=== PATIENT | male | born 1990 | race Hispanic/Latino ===

== ENCOUNTER 2017-08-23 17:22 | Emergency (ER) | payer MEDICAID, OTHER ==
[2017-08-23 18:42] LABS: #Eosinphils 0.1 thou/uL (0.0-0.7); #Lymphocytes 0.8 thou/uL (1.20-3.40); #Monocytes 0.5 thou/uL (0.11-0.59); %Basophils 0.9 % (0.0-1.0); %Lymphocytes 15.3 % (21.0-51.0); %Monocytes 8.9 % (0.0-10.0); Hematocrit 47.2 % (42.0-52.0); Mean Platelet Volume 7.7 fL (7.4-10.4); Red Blood Cell (RBC) Count 4.82 mill/uL (4.70-6.10); White Blood Cell (WBC) Count 5.4 thou/uL (4.8-10.8)
[2017-08-23 19:03] LABS: ALT (SGPT) 14 U/L (8-55); AST (SGOT) 15 U/L (5-34); Alkaline Phosphatase 73 U/L (40-150); Anion Gap 13 mmol/L (10-20); BUN (Urea Nitrogen) 11 mg/dL (8.9-20.6); Bilirubin, Total 0.6 mg/dL (0.2-1.2); Calc. Creatinine Clearance 0 mL/min (70-130); Carbon Dioxide 24 mmol/L (22-29); Chloride 104 mmol/L (98-107); Estimated GFR-MDRD Greater than 90; Globulin 3.1 g/dL (2.4-3.5); Protein, Total 7.1 g/dL (6.0-8.3)
[2017-08-23] MEDS ORDERED: Dexamethasone 4 MG TAB ONE (19:06)
[2017-08-23 19:16] LABS: Bilirubin Negative (Negative); Blood, Urine Negative (Negative); Glucose, Urine (Dipstick) Negative (Negative); Ketone, Urine Negative (Negative); Nitrite Negative (Negative); Protein, Urine (Dipstick) Negative (Neg-Trace)
== END 2017-08-23 20:07 | disposition home or self-care (01) ==
LOC: ERS 17:22
DX: J02.9 Acute pharyngitis, unspecified (principal); F41.9 Anxiety disorder, unspecified; F32.9 Major depressive disorder, single episode, unspecified
CPT/HCPCS: 80053; 81003; 85025; 87081; 87430; 96360; J8540

== ENCOUNTER 2017-09-30 15:50 | Emergency (ER) | payer OTHER ==
[2017-09-30 18:29] LABS: Medtox Reader # READER 4; THC/Cannabinoid Screen Detected (NotDetected)
[2017-09-30 18:30] LABS: Amphetamine Detected (NotDetected); Barbiturates Screen Not Detected (NotDetected); Benzodiazepine Screen Detected (NotDetected); Cocaine Metabolite Screen Not Detected (NotDetected); Medtox Control Line Valid? VALID (VALID); Methadone Not Detected (NotDetected); Methamphetamine Not Detected (NotDetected); Opiate Screen Not Detected (NotDetected); Oxycodone Screen Not Detected (NotDetected); Phencyclidine (PCP) Not Detected (NotDetected); Tricyclic Screen Not Detected (NotDetected)
[2017-10-01 21:31] LABS: Chlamydia by PCR Not Detected (NotDetected); GC by PCR Not Detected (NotDetected)
== END 2017-09-30 19:34 | disposition home or self-care (01) ==
LOC: ERS 15:50
DX: T76.21XA Adult sexual abuse, suspected, initial encounter (principal)
CPT/HCPCS: 80306; 87491; 87591; 99285

== ENCOUNTER 2018-04-30 18:54 | Emergency (ER) | payer OTHER | END 2018-04-30 20:04 | disposition left against medical advice (07) | LOC: ERS 18:54 | DX: Z53.21 Procedure and treatment not carried out due to patient leaving prior to being seen by health care provider (principal) ==

== ENCOUNTER 2018-07-05 11:40 | Emergency (ER) | payer OTHER ==
[2018-07-05] MEDS ORDERED: Ketorolac Tromethamine 60 MG/2 ML VIAL ONE (12:01)
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
[2018-07-05] MEDS ORDERED: HYDROcodone/Acetaminophen 10/325 mg Tablet ONE (12:15)
== END 2018-07-05 13:52 | disposition home or self-care (01) ==
LOC: ERS 11:40
DX: S92.342A Displaced fracture of fourth metatarsal bone, left foot, initial encounter for closed fracture (principal); F41.9 Anxiety disorder, unspecified; F32.9 Major depressive disorder, single episode, unspecified; X50.1XXA Overexertion from prolonged static or awkward postures, initial encounter
CPT/HCPCS: 96372; J1885

== ENCOUNTER 2018-07-15 17:20 | Emergency (ER) | payer OTHER | END 2018-07-15 19:20 | disposition home or self-care (01) | LOC: ERS 17:20 | DX: M25.572 Pain in left ankle and joints of left foot (principal); F41.9 Anxiety disorder, unspecified; F32.9 Major depressive disorder, single episode, unspecified | CPT/HCPCS: 99283 ==

== ENCOUNTER 2019-01-25 10:25 | Emergency (ER) | payer OTHER ==
[2019-01-25] MEDS ORDERED: Ketorolac Tromethamine 60 MG/2 ML VIAL ONE (10:32)
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
== END 2019-01-25 11:35 | disposition home or self-care (01) ==
LOC: ERS 10:25
DX: S93.401A Sprain of unspecified ligament of right ankle, initial encounter (principal); F32.9 Major depressive disorder, single episode, unspecified; F41.9 Anxiety disorder, unspecified; W18.42XA Slipping, tripping and stumbling without falling due to stepping into hole or opening, initial encounter
CPT/HCPCS: 96372; J1885

== ENCOUNTER 2019-02-17 18:37 | Emergency (ER) | payer OTHER | END 2019-02-17 19:03 | disposition home or self-care (01) | LOC: ERS 18:37 | DX: J30.9 Allergic rhinitis, unspecified (principal); F32.9 Major depressive disorder, single episode, unspecified; F41.9 Anxiety disorder, unspecified | CPT/HCPCS: 99283 ==

== ENCOUNTER 2019-08-08 22:58 | Emergency (ER) | payer OTHER, SELFPAY ==
[2019-08-08] MEDS ORDERED: fentaNYL Citrate/PF 2,000 MCG in Sodium Chloride 0.9% 60 ML IV SCH (23:13)
[2019-08-08 23:20] LABS: #Basophils 0.1 thou/uL (0.0-0.2); #Eosinphils 0.1 thou/uL (0.0-0.7); #Lymphocytes 1.9 thou/uL (1.20-3.40); #Monocytes 0.8 thou/uL (0.11-0.59); #Neutrophils 5.7 thou/uL (1.40-6.50); %Basophils 0.8 % (0.0-1.0); %Monocytes 9.2 % (0.0-10.0); Hemoglobin 16.1 g/dL (14.0-18.0); Mean Corpuscular HGB CONC 35.2 g/dL (32.0-36.0); Mean Corpuscular Hemoglobin 33.4 pg (27.0-31.0); Mean Platelet Volume 7.7 fL (7.4-10.4); Platelet Count 258 thou/uL (130-400); Red Blood Cell (RBC) Count 4.83 mill/uL (4.70-6.10); White Blood Cell (WBC) Count 8.6 thou/uL (4.8-10.8)
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
[2019-08-08 23:40] LABS: Bacteria/HPF None Seen HPF (None Seen); Bilirubin Negative (Negative); Blood, Urine Negative (Negative); Clarity Clear (Clear); Glucose, Urine (Dipstick) Normal (Negative); Leukocyte Negative Leu/uL (Negative); Mucous/LPF 1+ LPF (<2+); Nitrite Negative (Negative); Protein, Urine (Dipstick) 70 mg/dL (Neg-Trace); RBC/HPF 0-3 HPF (0-3); Squamous Epithelial 0-3 HPF (0-3); WBC/HPF 0-3 HPF (0-3)
[2019-08-08 23:45] LABS: Cocaine Metabolite Screen Not Detected (NotDetected); Medtox Reader # READER 4; Phencyclidine (PCP) Not Detected (NotDetected); Sperm/HPF Rare HPF (None Seen); THC/Cannabinoid Screen Detected (NotDetected)
[2019-08-08 23:45] LABS: Actual Bicarbonate (HCO3a) 19.4 mEq/L (22-28); Analyzer IN Cardio ER; Base Excess (BEa) -2.8 mEq/L (-2.0 to +3.0); CO2 Tension 27.5 mmHg (35.0-45.0); Calcium, Ionized 1.09 mmol/L (1.12-1.30); Carboxyhemoglobin (COHb) 0.7 gm% (0.0-3.0); Hemoglobin (Hb) 14.3 g/dL (14.0-18.0); O2 Tension (PaO2) 195.5 mmHg (80.0-100.0); Potassium - ABG Lab 2.53 mmol/L (3.70-5.30); pH, Arterial 7.47 (7.35-7.45)
[2019-08-08 23:46] LABS: Amphetamine Detected (NotDetected); Barbiturates Screen Not Detected (NotDetected); Benzodiazepine Screen Detected (NotDetected); Medtox Control Line Valid? VALID (VALID); Methadone Not Detected (NotDetected); Methamphetamine Detected (NotDetected); Opiate Screen Not Detected (NotDetected); Oxycodone Screen Not Detected (NotDetected); Tricyclic Screen Not Detected (NotDetected)
[2019-08-08] MEDS ORDERED: Ketamine 50 MG/ML (10ML VIAL) ONE (23:49)
[2019-08-08] MEDS ORDERED: Rocuronium Bromide 10 MG/ML (10ML VIAL) ONE (23:49)
[2019-08-08 23:52] LABS: Acetaminophen Less than 6.0 mcg/mL (10.0-30.0); Alcohol Less than 10 mg/dL (Less than 10); Salicylate Less than 8.0 mg/dL (15.0-30.0)
[2019-08-08 23:54] LABS: ALT (SGPT) 22 U/L (8-55); AST (SGOT) 22 U/L (5-34); Alkaline Phosphatase 85 U/L (40-110); Anion Gap 22 mmol/L (10-20); BUN (Urea Nitrogen) 10 mg/dL (8.9-20.6); Calc. Creatinine Clearance 0 mL/min (70-130); Calcium 9.7 mg/dL (7.8-10.44); Carbon Dioxide 22 mmol/L (22-29); Chloride 100 mmol/L (98-107); Estimated GFR-MDRD 83; Globulin 2.8 g/dL (2.4-3.5); Glucose 85 mg/dL (70-105); Potassium 3.1 mmol/L (3.5-5.1); Protein, Total 7.8 g/dL (6.0-8.3); Sodium 141 mmol/L (136-145)
[2019-08-09] MEDS ORDERED: Propofol 1,000 MG/100 ML VIAL IV ONE (00:32)
[2019-08-18 03:03] LABS: ALV-art Gradient 197.925 (0-20); Puncture Site RBA
== END 2019-08-09 01:00 | disposition short-term general hospital (02) ==
LOC: ERS 22:58
DX: T28.0XXA Burn of mouth and pharynx, initial encounter (principal); F41.9 Anxiety disorder, unspecified; F32.9 Major depressive disorder, single episode, unspecified; X08.8XXA Exposure to other specified smoke, fire and flames, initial encounter
CPT/HCPCS: 31500; 36415; 51702; 71045; 80053; 80306; 80307; 81003; 81015; 82805; 83605; 85025; 87086; 94002; 96360; 96365; 96375; G0390; J2704; J3010; J3490

== ENCOUNTER 2019-11-14 04:32 | Emergency (ER) | payer SELFPAY ==
[2019-11-14] MEDS ORDERED: hydrOXYzine 25 MG TAB ONE (05:16)
[2019-11-14] MEDS ORDERED: Cyclobenzaprine 10 MG TAB ONE (06:35)
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
== END 2019-11-14 06:44 | disposition home or self-care (01) ==
LOC: ERS 04:32
DX: S09.90XA Unspecified injury of head, initial encounter (principal); S29.012A Strain of muscle and tendon of back wall of thorax, initial encounter; F32.9 Major depressive disorder, single episode, unspecified; F41.9 Anxiety disorder, unspecified; W19.XXXA Unspecified fall, initial encounter
CPT/HCPCS: 70450; 72072; 72125; L0120

== ENCOUNTER 2021-04-24 00:45 | Emergency (ER) | payer SELFPAY ==
[2021-04-24 02:42] LABS: #Eosinphils 0.5 thou/uL (0.0-0.7); #Lymphocytes 2.5 thou/uL (1.20-3.40); #Monocytes 0.6 thou/uL (0.11-0.59); #Neutrophils 4.2 thou/uL (1.40-6.50); %Basophils 0.4 % (0.0-1.0); %Eosinophils 6.2 % (0.0-10.0); %Lymphocytes 32.1 % (21.0-51.0); %Monocytes 7.6 % (0.0-10.0); %Neutrophils 53.8 % (42.0-75.0); Hemoglobin 15.9 g/dL (14.0-18.0); Mean Corpuscular HGB CONC 34.2 g/dL (32.0-36.0); Mean Corpuscular Hemoglobin 33.8 pg (27.0-31.0); Mean Corpuscular Volume 98.9 fL (78.0-98.0); Mean Platelet Volume 7.4 fL (7.4-10.4); Platelet Count 247 thou/uL (130-400); RBC Distribution Width 12.6 % (11.5-14.5); Red Blood Cell (RBC) Count 4.69 mill/uL (4.70-6.10); White Blood Cell (WBC) Count 7.7 thou/uL (4.8-10.8)
[2021-04-24 03:02] LABS: Acetaminophen Less than 6.0 mcg/mL (10.0-30.0); Alcohol 118 mg/dL (Less than 10); Salicylate Less than 8.0 mg/dL (15.0-30.0)
[2021-04-24 03:03] LABS: ALT (SGPT) 21 U/L (8-55); AST (SGOT) 20 U/L (5-34); Albumin 4.3 g/dL (3.5-5.0); Alkaline Phosphatase 86 U/L (40-110); Anion Gap 15 mmol/L (10-20); BUN (Urea Nitrogen) 12 mg/dL (8.9-20.6); Bilirubin, Total 0.3 mg/dL (0.2-1.2); Calc. Creatinine Clearance 0 mL/min (70-130); Calcium 8.6 mg/dL (7.8-10.44); Carbon Dioxide 25 mmol/L (22-29); Chloride 106 mmol/L (98-107); Globulin 3.2 g/dL (2.4-3.5); Glucose 106 mg/dL (70-105); Protein, Total 7.5 g/dL (6.0-8.3); Sodium 142 mmol/L (136-145)
== END 2021-04-24 03:54 ==
LOC: ERS 00:45
DX: T42.4X2A Poisoning by benzodiazepines, intentional self-harm, initial encounter (principal); T51.92XA Toxic effect of unspecified alcohol, intentional self-harm, initial encounter; R47.81 Slurred speech; F10.129 Alcohol abuse with intoxication, unspecified; Y90.5 Blood alcohol level of 100-119 mg/100 ml
CPT/HCPCS: 36415; 80053; 80307; 85025; 99285

== ENCOUNTER 2021-09-19 06:40 | Emergency (ER) | payer SELFPAY | END 2021-09-19 07:45 | disposition home or self-care (01) | LOC: ERS 06:40 | DX: T24.212A Burn of second degree of left thigh, initial encounter (principal); L03.116 Cellulitis of left lower limb; X58.XXXA Exposure to other specified factors, initial encounter; Y93.G3 Activity, cooking and baking | CPT/HCPCS: 99283 ==

== ENCOUNTER 2022-01-05 12:42 | Emergency (ER) | payer SELFPAY | END 2022-01-05 12:55 | disposition left against medical advice (07) | LOC: ERS 12:42 | DX: Z53.21 Procedure and treatment not carried out due to patient leaving prior to being seen by health care provider (principal) ==

== ENCOUNTER 2022-04-30 22:04 | Emergency (ER) | payer SELFPAY | END 2022-04-30 23:36 | disposition home or self-care (01) | LOC: ERS 22:04 | DX: F41.9 Anxiety disorder, unspecified (principal); R00.0 Tachycardia, unspecified; R05.9 Cough, unspecified; Z20.822 Contact with and (suspected) exposure to COVID-19 | CPT/HCPCS: 71045; U0003; U0005 ==